=== PATIENT | female | born 1960 | race Caucasian/White ===

== ENCOUNTER → 2023-08-31 | Outpatient (CLI) | payer OTHER ==
[~2023-08-31] MED LIST: IOHEXOL 350 MG/ML 100ML INFUS..BTL IV ONE; METOPROLOL TARTRATE 1 MG/ML 5ML VIAL IV ONE
== END | disposition home or self-care (01) ==
LOC: RAH 09:52
PROVIDERS: ATTEND Internal Medicine Cardiovascular Disease
DX: I25.10 Atherosclerotic heart disease of native coronary artery without angina pectoris (principal); M47.815 Spondylosis without myelopathy or radiculopathy, thoracolumbar region
CPT/HCPCS: 75574; J3490; Q9967

== ENCOUNTER → 2024-11-20 | Outpatient (CLI) | payer OTHER ==
[2024-11-20 08:07] LABS: INR 1.03 (0.85-1.15); PROTHROMBIN TIME 10.9 SEC (9.6-11.6)
[2024-11-20 08:08] LABS: PARTIAL THROMBOPLASTIN TIME 26.8 SEC (26.3-35.5)
--- NOTE | 2024-11-20 09:35 | NUR ---
U/S GD LT THYROID NODULE TOLERATED PROCEDURE. PERFORMED BY DR Mohsen MILLS. PUNCTURE SITE TO LT NECK. X4 SPECIMEN ASPIRATION REMOVED AND COLLECTED BY [employer] [facility]. END OF PROCEDURE AT 0915. DRESSING DRY AND INTACT. NO BLEEDING NOTED. DISCHARGE INSTRUCTIONS GIVEN TO PT. VERBALIZED UNDERSTANDING. DISCHARGE VIA AMBULATORY. DENIES PAIN. A&O.
--- NOTE | 2024-11-20 10:10 | HMCIMG ---
US FINE NEEDLE ASP IR HISTORY: Thyroid nodules COMPARISON: None TECHNIQUE: Informed consent was obtained. Risks and benefits were explained to the patient. A timeout was performed. Patient was prepped and draped in a sterile fashion. Local anesthetics was given as required. Under ultrasound guidance, left thyroid mass was localized. Needle aspiration was performed with 22-gauge needle. 4 passes were made. FINDINGS: Patient tolerated procedure without complication. Patient left the department in good condition. IMPRESSION: 1. Uncomplicated left thyroid mass needle aspiration.
== END | disposition home or self-care (01) ==
LOC: RAH 07:42
PROVIDERS: ATTEND Student in an Organized Health Care Education/Training Program
DX: E04.2 Nontoxic multinodular goiter (principal); E78.2 Mixed hyperlipidemia; N18.2 Chronic kidney disease, stage 2 (mild); I11.9 Hypertensive heart disease without heart failure; G47.33 Obstructive sleep apnea (adult) (pediatric); H52.209 Unspecified astigmatism, unspecified eye; K21.9 Gastro-esophageal reflux disease without esophagitis; F32.A Depression, unspecified; Z79.01 Long term (current) use of anticoagulants; Z79.899 Other long term (current) drug therapy
CPT/HCPCS: 10005; 36415; 76942; 85610; 85730; 88173; 88305